=== PATIENT | female | born 1995 | race Caucasian/White ===

== ENCOUNTER 2017-07-04 03:34 | Emergency (ER) | payer OTHER ==
[~2017-07-04] VITALS: Ht 160 cm; Wt 45.0 kg
[2017-07-04 03:36] VITALS: BP 98/62; PULSE 58; RESP 16; TEMP 98.4; O2SAT 98
[2017-07-04] MEDS ORDERED: SODIUM CHLOR 0.9% 1000 ML INJ 1,000 ML IV ONE (03:45)
[2017-07-04] MEDS ORDERED: ONDANSETRON HCL 4 MG/2 ML VIAL IV PUSH ONE (03:45)
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
[2017-07-04 04:01] LABS: AUTOMATED NEUTROPHIL # 3.7 TH/MM3 (1.8-7.7); BASOPHIL % 0.6 % (0.0-2.0); EOSINOPHIL # 0.1 TH/MM3 (0-0.4); EOSINOPHIL % 1.5 % (0.0-4.0); HEMATOCRIT 31.3 % (35.0-46.0); HEMO FLAGS DIFF FINAL; LYMPH % 45.9 % (9.0-44.0); LYMPHOCYTE # 3.8 TH/MM3 (1.0-4.8); MEAN CELL VOLUME 88.4 FL (80.0-100.0); MEAN CORPUSCULAR HEMOGLOBIN 30.8 PG (27.0-34.0); MEAN CORPUSCULAR HGB CONC 34.8 % (32.0-36.0); MONO % 7.3 % (0.0-8.0); NEUT % 44.7 % (16.0-70.0); PLATELET COUNT 259 TH/MM3 (150-450); RED BLOOD COUNT 3.54 MIL/MM3 (4.00-5.30); RED CELL DISTRIBUTION WIDTH 12.4 % (11.6-17.2); WHITE BLOOD COUNT 8.2 TH/MM3 (4.0-11.0)
[2017-07-04 04:24] LABS: BICARBONATE 23.3 MEQ/L (21.0-32.0)
[2017-07-04 04:27] LABS: POTASSIUM 2.7 MEQ/L (3.5-5.1)
[2017-07-04] MEDS ORDERED: POTASSIUM CHLOR 10 MEQ PREMIX 100 ML IV ONE (04:45)
[2017-07-04 05:11] LABS: MAGNESIUM 2.1 MG/DL (1.5-2.5); POTASSIUM 3.2 MEQ/L (3.5-5.1)
[2017-07-04 05:30] VITALS: BP 83/50; PULSE 55; RESP 12; O2SAT 98
[2017-07-04 06:43] VITALS: BP 95/56; PULSE 62; RESP 12; O2SAT 99
[2017-07-04] MEDS ORDERED: POTASSIUM CHLOR 20 MEQ PREMIX 100 ML IV ONE (07:00)
[2017-07-04 09:40] VITALS: BP 102/56
== END 2017-07-04 10:32 | disposition home or self-care (01) ==
LOC: NEPC 03:34
DX: F10.129 Alcohol abuse with intoxication, unspecified (principal); E87.6 Hypokalemia; R11.10 Vomiting, unspecified
CPT/HCPCS: 80048; 80307; 83735; 84132; 85025; 96365; 96366; 96375; 96376; 99284; J2405; J3480; J7030

== ENCOUNTER 2017-10-13 16:00 | Emergency (ER) | payer OTHER ==
[~2017-10-13] VITALS: Ht 157.5 cm; Wt 48.5 kg
[2017-10-13 16:13] VITALS: BP 124/70; PULSE 85; RESP 18; TEMP 97.9; O2SAT 100
[2017-10-13] MEDS ORDERED: AMOX500C PO (16:39)
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
[2017-10-13] MEDS ORDERED: IBUP1TAB7 PO (17:53)
== END 2017-10-13 18:05 | disposition home or self-care (01) ==
LOC: PHEFT 16:00
DX: S16.1XXA Strain of muscle, fascia and tendon at neck level, initial encounter (principal); M79.602 Pain in left arm; V89.2XXA Person injured in unspecified motor-vehicle accident, traffic, initial encounter; Y92.488 Other paved roadways as the place of occurrence of the external cause
CPT/HCPCS: 72125; 99284